=== PATIENT | male | born 1950 | race Caucasian/White ===

== ENCOUNTER 2021-08-22 04:08 | Day surgery (SDC) | payer OTHER ==
[2021-08-21 14:16] VITALS: BMI 25.6
[~2021-08-22 04:08] MED LIST: LIDOCAINE HCL 1%, 10 MG/ML (20ML VIAL) INF ONE
[2021-08-22] MEDS ORDERED: HEPARIN NA (PORCINE) 5,000 UNITS/ML 1ML VIAL ONE ×3 (09:21→11:55)
[2021-08-22] MEDS ORDERED: LIDOCAINE HCL 1%, 10 MG/ML (20ML VIAL) ONE ×2 (09:21→09:33)
[2021-08-22] MEDS ORDERED: MIDAZOLAM HCL 2 MG/2 ML SINGLE DOSE VIAL ONE ×2 (10:28→11:08)
[2021-08-22] MEDS ORDERED: ceFAZolin SODIUM 1 GM VIAL ONE (10:52)
[2021-08-22] MEDS ORDERED: ceFAZolin SODIUM 1 GM VIAL IVPB ONE (10:55)
[2021-08-22] MEDS ORDERED: LIDOCAINE HCL 1%, 10 MG/ML (20ML VIAL) INF ONE ×2 (11:08)
[2021-08-22] MEDS ORDERED: ONDANSETRON 4 MG/2 ML VIAL ONE (11:08)
[2021-08-22] MEDS ORDERED: PROPOFOL 20 ML ONE ×2 (11:52)
[2021-08-22] MEDS ORDERED: PROTAMINE SULFATE 50 MG/5 ML VIAL ONE (12:10)
[2021-08-22] MEDS ORDERED: CLOPIDOGREL BISULFATE 75 MG TABLET (FP) PO ONE (12:38)
[2021-08-22] MEDS ORDERED: CLOPIDOGREL BISULFATE 75 MG TABLET (FP) ONE (13:55)
[2021-08-22] MEDS ORDERED: oxyCODONE HCL 5 MG TABLET ONE (13:56)
[2021-08-22] MEDS ORDERED: ONDANSETRON 4 MG/2 ML VIAL IVPUSH PRN (14:27)
[2021-08-22] MEDS ORDERED: oxyCODONE HCL 5 MG TABLET PO PRN (14:27)
[2021-08-22 14:56] VITALS: BP 143/70; PULSE 72; TEMP 98.7
== END 2021-08-22 15:00 | disposition home or self-care (01) ==
LOC: JASU-SURG 04:08
PROVIDERS: ATTEND Surgery Vascular Surgery
PROC: 047L3D1 Dilation of Left Femoral Artery with Intraluminal Device, using Drug-Coated Balloon, Percutaneous Approach (ICD-10-PCS; principal; 2021-08-22 10:30)
DX: I70.212 Atherosclerosis of native arteries of extremities with intermittent claudication, left leg (principal); E11.9 Type 2 diabetes mellitus without complications; Z79.84 Long term (current) use of oral hypoglycemic drugs
CPT/HCPCS: 37227; C1877; C2623; 76000-TC-FY; 82962; 94760; J1644

== ENCOUNTER 2021-10-18 04:27 | Day surgery (SDC) | payer OTHER ==
[2021-10-16 15:31] VITALS: BMI 25.0
[~2021-10-18 04:27] MED LIST changes: +DEXAMETHASONE SOD PHOSPHATE 10 MG/1 ML VIAL IVPUSH ONE; +IOHEXOL 180 MG/1 ML ML IJ ONE; +LIDOCAINE HCL 1% PRESERVATIVE FREE - 30ML VIAL IJ ONE; -LIDOCAINE HCL 1%, 10 MG/ML (20ML VIAL) INF ONE
[2021-10-18] MEDS ORDERED: LIDOCAINE HCL 1% PRESERVATIVE FREE - 30ML VIAL IJ ONE (10:31)
[2021-10-18] MEDS ORDERED: IOHEXOL 180 MG/1 ML ML IJ ONE ×2 (10:34)
[2021-10-18] MEDS ORDERED: DEXAMETHASONE SOD PHOSPHATE 10 MG/1 ML VIAL IVPUSH ONE (10:50)
[2021-10-18 11:06] VITALS: BP 142/82; PULSE 79; TEMP 98.8
== END 2021-10-18 11:13 | disposition home or self-care (01) ==
LOC: JASU-SURG 04:27
PROVIDERS: ATTEND Pain Medicine Pain Medicine
PROC: 3E0R33Z Introduction of Anti-inflammatory into Spinal Canal, Percutaneous Approach (ICD-10-PCS; 2021-10-18)
PROC: 3E0R3BZ Introduction of Anesthetic Agent into Spinal Canal, Percutaneous Approach (ICD-10-PCS; principal; 2021-10-18 12:00)
DX: M54.16 Radiculopathy, lumbar region (principal)
CPT/HCPCS: 76000-TC-FY; J1100

== ENCOUNTER 2022-06-19 04:07 | Day surgery (SDC) | payer OTHER ==
[2022-06-17 13:46] VITALS: BMI 24.2
[2022-06-19] MEDS ORDERED: LIDOCAINE HCL 1%, 10 MG/ML (20ML VIAL) ONE ×2 (08:01→08:46)
[2022-06-19] MEDS ORDERED: HEPARIN NA (PORCINE) 5,000 UNITS/ML 1ML VIAL ONE ×3 (08:02→11:06)
[2022-06-19] MEDS ORDERED: PROPOFOL 20 ML ONE (10:19)
[2022-06-19] MEDS ORDERED: FENTANYL CITRATE/PF 50 MCG/ML VIAL ONE ×2 (10:19→10:45)
[2022-06-19] MEDS ORDERED: MIDAZOLAM HCL 2 MG/2 ML SINGLE DOSE VIAL ONE (10:19)
[2022-06-19] MEDS ORDERED: LIDOCAINE HCL/PF 2% SDV 5ML VIAL ONE (10:20)
[2022-06-19] MEDS ORDERED: ceFAZolin SODIUM 1 GM VIAL ONE (10:21)
[2022-06-19] MEDS ORDERED: SODIUM CHLORIDE 0.9% P/F 10 ML VIAL IJ ONE (10:21)
[2022-06-19] MEDS ORDERED: ceFAZolin SODIUM 1 GM VIAL IVPB ONE (10:35)
[2022-06-19] MEDS ORDERED: LIDOCAINE HCL 1%, 10 MG/ML (50 mL VIAL) INF ONE (10:51)
[2022-06-19] MEDS ORDERED: oxyCODONE HCL 5 MG TABLET PO PRN (11:52)
[2022-06-19] MEDS ORDERED: ONDANSETRON 4 MG/2 ML VIAL IVPUSH PRN (11:52)
[2022-06-19] MEDS ORDERED: PROMETHAZINE HCL 25 MG/1 ML VIAL IVPUSH PRN (11:52)
[2022-06-19] MEDS ORDERED: LACTATED RINGERS SOLUTION 1,000 ML IV SCH (12:00)
[2022-06-19 13:23] VITALS: PULSE 62; RESP 18
[2022-06-19 15:27] VITALS: BP 133/71; TEMP 97.1
== END 2022-06-19 13:40 | disposition home or self-care (01) ==
LOC: JASU-SURG 04:07
PROVIDERS: ATTEND Surgery Vascular Surgery
PROC: B41DYZZ Fluoroscopy of Aorta and Bilateral Lower Extremity Arteries using Other Contrast (ICD-10-PCS; principal; 2022-06-19 09:00)
DX: I73.9 Peripheral vascular disease, unspecified (principal)
CPT/HCPCS: 36140; 75716-TC-FY; 76000-TC-FY; 82962; 94760; C1760; J1644

== ENCOUNTER 2022-07-25 08:54 | Day surgery (SDC) | payer OTHER ==
[2022-07-23 11:12] VITALS: BMI 25.0
[2022-07-24] MEDS: ACETAMINOPHEN 500 MG TABLET (FP) PO SCH ×2 (15:56→21:07)
[2022-07-24] MEDS: GABAPENTIN 300 MG CAPSULE PO SCH ×2 (16:03→21:08)
[2022-07-24] MEDS: SODIUM CHLORIDE 1,000 ML IV SCH (16:04)
[2022-07-24] MEDS: INSULIN SLIDING SCALE (NOVOLOG) 1 VIAL SQ SCH ×2 (17:43→21:08)
[2022-07-24] MEDS: CEFAZOLIN 1 GM in DEXTROSE 5%-WATER - 50 ML IVPB SCH (21:06)
[2022-07-25] MEDS: ACETAMINOPHEN 500 MG TABLET (FP) PO SCH ×3 (03:25→14:29)
[2022-07-25] MEDS: CEFAZOLIN 1 GM in DEXTROSE 5%-WATER - 50 ML IVPB SCH (03:25)
[2022-07-25] MEDS: GABAPENTIN 300 MG CAPSULE PO SCH ×2 (05:31→14:29)
[2022-07-25] MEDS: SODIUM CHLORIDE 1,000 ML IV SCH (05:35)
[2022-07-25] MEDS: INSULIN SLIDING SCALE (NOVOLOG) 1 VIAL SQ SCH ×3 (06:04→16:40)
[2022-07-25 07:05] LABS: BASO % 0.4 % (0-2.0); HEMATOCRIT 26.6 % (35.4-49); HEMOGLOBIN 8.9 GM/dL (11.7-16.9); LYMPH % 29.4 % (8-40); MCH 28.2 pg (25.7-33.7); MCHC 33.5 g/dl (32.0-35.9); MEAN CELL VOLUME 84.2 fl (80-96); MEAN PLT VOLUME 7.2 fl (7.5-11.1); MONO % 11.8 % (3.8-10.2); NEUT % 57.4 % (42.8-82.8); PLATELET COUNT 192 10^3/uL (134-434); RBC 3.15 M/mm3 (4.00-5.60); RDW 16.6 % (11.9-15.9); WHITE BLOOD COUNT 8.2 K/mm3 (4.0-10.0)
[2022-07-25 07:29] LABS: BLOOD UREA NITROGEN 20.4 mg/dL (7-18)
[2022-07-25 07:31] LABS: CREATININE 0.9 mg/dL (0.55-1.3)
[~2022-07-25 08:54] MED LIST changes: +ACETAMINOPHEN 1000 MG/100 ML BAG IVPB ONE; +ACETAMINOPHEN INJECTION 100 ML IVPB ONE; +CEFAZOLIN 1 GM in DEXTROSE 5%-WATER - 50 ML IVPB SCH; +CEFAZOLIN 2 GM in DEXTROSE 5%-WATER - 100 ML IVPB ONE; -DEXAMETHASONE SOD PHOSPHATE 10 MG/1 ML VIAL IVPUSH ONE; +DEXAMETHASONE SOD PHOSPHATE 4 MG/1 ML VIAL ONE; +GLYCOPYRROLATE 0.2 MG/1 ML VIAL ONE; +HEPARIN NA (PORCINE) 5,000 UNITS/ML 1ML VIAL ONE; -IOHEXOL 180 MG/1 ML ML IJ ONE; +KETOROLAC TROMETHAMINE 30 MG/1 ML VIAL ONE; -LIDOCAINE HCL 1% PRESERVATIVE FREE - 30ML VIAL IJ ONE; +MIDAZOLAM HCL 2 MG/2 ML SINGLE DOSE VIAL ONE; +NEOSTIGMINE METHYLSULFATE 0.5 MG/1 ML - 10 ML MDV ONE; +ONDANSETRON 4 MG/2 ML VIAL IVPUSH PRN; +ONDANSETRON 4 MG/2 ML VIAL ONE; +PROPOFOL 20 ML ONE; +ROCURONIUM BROMIDE 50 MG/5 ML SYRINGE ONE; +ceFAZolin SODIUM 1 GM VIAL IVPB ONE; +ceFAZolin SODIUM 1 GM VIAL ONE; +metFORMIN HCL 500 MG TABLET (FP) PO SCH; +morphine CARPU-JECT 4 MG/1 ML DISP.SYRIN IVPUSH PRN; +morphine SULFATE 4 MG/ML VIAL IVPUSH PRN; +oxyCODONE HCL 5 MG TABLET PO PRN
[2022-07-25] MEDS ORDERED: LISINOPRIL 10 MG TABLET PO SCH (10:00)
[2022-07-25] MEDS ORDERED: ATORVASTATIN CA 10 MG TABLET (FP) PO SCH (10:00)
[2022-07-25] MEDS ORDERED: CLOPIDOGREL BISULFATE 75 MG TABLET (FP) PO SCH (10:00)
[2022-07-25] MEDS ORDERED: FERROUS SO4 325 MG TABLET (FP) PO SCH (10:00)
[2022-07-25] MEDS ORDERED: SODIUM CHLORIDE 1,000 ML IV SCH (12:31)
[2022-07-25 14:32] VITALS: RESP 16
[2022-07-25] MEDS ORDERED: TAMSULOSIN HCL 0.4 MG CAP PO ONE (17:11)
[2022-07-25 17:43] LABS: HEMATOCRIT 29.3 % (35.4-49); HEMOGLOBIN 9.8 GM/dL (11.7-16.9); MCH 28.3 pg (25.7-33.7); MCHC 33.4 g/dl (32.0-35.9); MEAN CELL VOLUME 84.8 fl (80-96); MEAN PLT VOLUME 6.7 fl (7.5-11.1); PLATELET COUNT 214 10^3/uL (134-434); RBC 3.46 M/mm3 (4.00-5.60); RDW 16.8 % (11.9-15.9); WHITE BLOOD COUNT 8.2 K/mm3 (4.0-10.0)
[2022-07-25 18:45] VITALS: BP 106/57; PULSE 79; TEMP 98
== END 2022-07-25 19:00 | disposition home or self-care (01) ==
LOC: JICU 08:54 → JASUSAT 08:54
PROVIDERS: ATTEND Surgery Vascular Surgery
PROC: 041L0JJ Bypass Left Femoral Artery to Left Femoral Artery with Synthetic Substitute, Open Approach (ICD-10-PCS; principal; 2022-07-25)
DX: I73.9 Peripheral vascular disease, unspecified (principal)
CPT/HCPCS: 36415; 80048; 82728; 82962; 83540; 83550; 85025; 85027; 86850; 86900; 86901; 86922; 88304-TC; 88311-TC; 94760; 97116-GP; 97161-GP; J1644